=== PATIENT | female | born 1975 | race Caucasian/White ===

== ENCOUNTER 2022-01-03 10:50 | Outpatient (RCR) | payer OTHER, SELFPAY | END 2022-07-02 23:59 | disposition home or self-care (01) | LOC: CCIC 10:50 | PROVIDERS: PCP Family Medicine; Visit Provider Nurse Practitioner Family | DX: D05.12 Intraductal carcinoma in situ of left breast (principal); Z17.0 Estrogen receptor positive status [ER+]; Z79.810 Long term (current) use of selective estrogen receptor modulators (SERMs) | CPT/HCPCS: 99212; 99214 ==

== ENCOUNTER 2022-01-30 13:53 | Outpatient (RCR) | payer OTHER, SELFPAY ==
--- NOTE | 2022-03-22 16:30 | ONC.NURNOTE ---
Pt called saying she is down to 3 pills left of Tamoxifen with no refills. #90 with 1 refill called in per Milli Lewis APRN. Lm updating pt.
== END 2022-12-05 23:59 | disposition home or self-care (01) ==
PROVIDERS: PCP Family Medicine; Visit Provider Surgery
DX: I89.0 Lymphedema, not elsewhere classified (principal); Z51.89 Encounter for other specified aftercare
CPT/HCPCS: 97530

== ENCOUNTER 2022-08-01 08:21 | Outpatient (RCR) | payer OTHER, SELFPAY | END 2023-01-28 23:59 | disposition home or self-care (01) | LOC: CCIC 08:21 | PROVIDERS: PCP Family Medicine; Visit Provider Physician Assistant | DX: D05.12 Intraductal carcinoma in situ of left breast (principal); Z17.0 Estrogen receptor positive status [ER+]; Z79.810 Long term (current) use of selective estrogen receptor modulators (SERMs); N94.3 Premenstrual tension syndrome | CPT/HCPCS: 99212; 99214 ==

== ENCOUNTER 2023-04-21 08:29 | Outpatient (RCR) | payer OTHER, SELFPAY | END 2023-10-18 23:59 | disposition home or self-care (01) | LOC: CCIC 08:29 | PROVIDERS: PCP Family Medicine; Visit Provider Physician Assistant | DX: D05.12 Intraductal carcinoma in situ of left breast (principal); Z17.0 Estrogen receptor positive status [ER+]; Z90.13 Acquired absence of bilateral breasts and nipples; Z79.810 Long term (current) use of selective estrogen receptor modulators (SERMs); N60.99 Unspecified benign mammary dysplasia of unspecified breast; N60.89 Other benign mammary dysplasias of unspecified breast; N94.3 Premenstrual tension syndrome; N92.0 Excessive and frequent menstruation with regular cycle | CPT/HCPCS: 99212; 99214 ==

== ENCOUNTER 2023-11-04 09:12 | Outpatient (CLI) | payer OTHER, SELFPAY ==
--- OUTSIDE RECORDS SUMMARY | 2023-11-04 09:14 | XMS_ITS | Clinical Summary ---
Author Organization [facility] Address [address] [place] [id number] Care Team Providers Care Cad Manager Name Role Phone Larissa Valentine MD Primary Care Provider + Allergies No known active allergies Medications Medication Sig Dispensed Refills Start Date End Date Status tamoxifen (NOLVADEX) 20 MG tablet Take 20 mg by mouth daily Active ibuprofen (ADVIL/MOTRIN) 200 MG tablet Take 200 mg by mouth every 4 hours as needed for mild pain Active diphenhydrAMINE (BENADRYL) 25 MG tablet Take 25 mg by mouth every 6 hours as needed for itching or allergies Active oxyCODONE (ROXICODONE) 5 MG tabletIndications:Stat us post breast reconstruction Take 1-2 tablets (5-10 mg) by mouth every 4 hours as needed for moderate to severe pain 20 tablet 02/07/2022 Active senna-docusate (SENOKOT-S/PERICOLACE) 8.6-50 MG tabletIndications:Stat us post breast reconstruction Take 1-2 tablets by mouth 2 times daily 20 tablet 02/07/2022 Active Social History Tobacco Use Types Packs/Day Years Used Date Smoking Tobacco: Never Smokeless Tobacco: Never Alcohol Use Standard Drinks/Week Comments Yes 0 (1 standard drink = 0.6 oz pur e alcohol) social Adolescent Education Answer Date Record ed Getting School Help Needed Not on file 02/15 Sex and Gender Information Value Date Recorded Sex Assigned at Not on file Gender Identity Not on file Sexual Orientation Not on file Last Filed Vital Signs Vital Sign Reading Time Taken Comments Blood Pressure 107/74 02/07/2022 3:11 PM CDT Pulse 69 02/07/2022 3:11 PM CDT Temperature 36.4 ??C (97.6 ??F) 02/07/2022 2:15 PM CD T Respiratory Rate 12 02/07/2022 3:11 PM CDT Oxygen Saturation 98% 02/07/2022 3:11 PM CDT Inhaled Oxygen Concentration - - Weight 90.3 kg (199 lb) 02/07/2022 10:08 AM CDT Height 172.7 cm (5' 8) 02/07/2022 10:08 AM CDT Body Mass Index 30.26 02/07/2022 10:08 AM CDT Plan of Treatment Health Maintenance Due Date Last Done Comments ADVANCE CARE PLANNING 1977 ANNUAL REVIEW OF HM ORDERS 1977 CT COLONOGRAPHY 1977 FIT 1977 FLEX SIG 1977 YEARLY PREVENTIVE VISIT 1977 sDNA (Cologuard) 1977 Pneumococcal Vaccine: Pediatrics (0 to 5 Years) and At-Risk Patients (6 to 64 Years) (1 of 2 - PCV) 09/13/1983 COLONOSCOPY 09/13/1987 COLORECTAL CANCER SCREENING 09/13/1987 HIV SCREENING 1992 HEPATITIS C SCREENING 09/13/1995 HEPATITIS B IMMUNIZATION (1 of 3 - 19+ 3-dose series) 1996 PAP 1998 GLUCOSE 07/10/2008 07/10/2005 LIPID 2017 COVID-19 Vaccine ( season) 2023 04/17/2021, 09/15/2020, 08/25/2020 PHQ-2 (once per calendar year) 2023 DTAP/TDAP/TD IMMUNIZATION (2 - Td or Tdap) 06/10/2023 06/10/2013 INFLUENZA VACCINE (Season Ended) 2024 03/02/2021, 03/08/2020, 03/18/2018, Additional history exists HPV IMMUNIZATION Aged Out No longer e ligible based on patient's age to complete this topic IPV IMMUNIZATION Aged Out No longer e ligible based on patient's age to complete this topic MENINGITIS IMMUNIZATION Aged Out No l onger eligible based on patient's age to complete this topic RSV MONOCLONAL ANTIBODY Aged Out No l onger eligible based on patient's age to complete this topic Medical Devices Implanted Type Area Car Tester Device Identifier Shelf Expiration Date Model / Serial / Lot Samantha Inspira Cohesive Breast Implant Smooth Round Full Profile Implanted:Qty: 1 on 02/07/2022 by Geri Salas MD at [facility] Left: Breast ALLERGAN [id number] 06/27/2026 [place] [address] / [id number] / [id number] Samantha Inspira Cohesive Breast Implant Smooth Round Full Profile Implanted:Qty: 1 on 02/07/2022 by Geri Salas MD at [facility] Right: Breast ALLERGAN [id number] 07/24/2025 [place] [address] / [id number] / Explanted Type Area Car Tester Device Identifier Shelf Expiration Date Model / Serial / Lot Tissue Psychotherapist Social Worker Explanted:Qty: 1 on 02/07/2022 by Geri Salas MD at [facility] Left: Breast Tissue Psychotherapist Social Worker Explanted:Qty: 1 on 02/07/2022 by Geri Salas MD at [facility] Right: Breast Procedures Procedure Name Priority Date/Time Associated Diagnosis Comments COMPREHENSIVE METABOLIC PANEL STAT 07/10/2005 3:45 AM [facility] [employer]AT[employer] EQUIPMENT from Last 3 Months or Most Recently Relevant to Health Maintenance Results * (ABNORMAL) Comprehensive metabolic panel (07/10/2005 3:45 AM CLE[facility]ER [employer]ORAT[employer] EQUIPMENT) Sodium 136 133 - 144 mmol/L MISYS Potassium 3.4 3.4 - 5.3 mmol/L MISYS Chloride 105 94 - 109 mmol/L MISYS Carbon Dioxide 22 20 - 32 mmol/L MISYS Glucose 117(H) 60 - 110 mg/dL MISYS Urea Nitrogen 10 5 - 24 mg/dL MISYS Creatinine 0.59(L) 0.60 - 1.30 mg/dL MISYS GFR Estimate >90 >60 mL/min/1.7 m2 MISYS GFR Estimate If Black >90 >60 mL/min/1.7 m2 MISYS Calcium 8.2(L) 8.5 - 10.4 mg/dL MISYS AST 21 0 - 45 U/L MISYS Protein Total 6.8 6.0 - 8.2 g/dL MISYS Anion Gap 9 6 - 17 mmol/L MISYS Albumin 3.6 3.3 - 4.6 g/dL MISYS ALT 16 0 - 50 U/L MISYS Alkaline Phosphatase 59 40 - 150 U/L MISYS Bilirubin Total 0.5 0.2 - 1.3 mg/dL MISYS 07/10/2005 3:45 AM [facility] EQUIPMENT 07/10/2005 3:23 AM CLE[facility]ER [facility]AT[facility] EQUIPMENT María Julien MD LAB - BLOOD ORDERABL ES MISYS from Last 3 Months or Most Recently Relevant to Health Maintenance Care Teams Cad Manager Relationship Specialty Start Date End Date Larissa Valentine MD [facility] [address] [place] [address] PCP - General Family Medicine 03/28/21
--- OUTSIDE RECORDS SUMMARY | 2023-11-04 09:14 | XMS_ITS | Referral Summary ---
Author Organization [facility] Address [address] [place] [id number] Care Team Providers Care Wildlife Biostation Research Ecologist Name Role Phone Larissa Valentine MD Primary [...] 02/07/2022 10:08 AM CDT Plan of Treatment Not on file Medical Devices Implanted Type Area Safety Engineer Device Identifier Shelf Expiration Date Model / Serial / Lot Natrelle Inspira Cohesive Breast Implant Smooth Round Full Profile Implanted:Qty: 1 on 02/07/2022 by Geri Salas MD at [facility] Left: Breast ALLERGAN [id number] 06/27/2026 [facility] [place] [place]-[facility] / [id number] / [id number] Natrelle Inspira Cohesive Breast Implant Smooth Round Full Profile Implanted:Qty: 1 on 02/07/2022 by Geri Salas MD at [facility] Right: Breast ALLERGAN [id number] 07/24/2025 [facility] / [id number] / Explanted Type Area Safety Engineer Device Identifier Shelf Expiration Date Model / Serial / Lot Tissue Pallet Repairer Explanted:Qty: 1 on 02/07/2022 by Geri Salas MD at [facility] Left: Breast Tissue Pallet Repairer Explanted:Qty: 1 on 02/07/2022 by Geri Salas MD at [facility] Right: Breast Procedures Procedure Name Priority Date/Time Associated Diagnosis Comments COMPREHENSIVE METABOLIC PANEL STAT 07/10/2005 3:45 AM FRONT DESK ASSOCIATE from Last 3 Months or Most Recently Relevant to Health Maintenance Results * (ABNORMAL) Comprehensive metabolic panel (07/10/2005 3:45 AM FRONT DESK ASSOCIATE) Sodium 136 133 - 144 mmol/L MISYS [...] - 1.3 mg/dL MISYS 07/10/2005 3:45 AM FRONT DESK ASSOCIATE 07/10/2005 3:23 AM FRONT DESK ASSOCIATE María Julien MD LAB - BLOOD ORDERABL ES MISYS from Last 3 Months or Most Recently Relevant to Health Maintenance Care Teams Wildlife Biostation Research Ecologist Relationship Specialty Start Date End Date Larissa Valentine MD [facility] [address] [place] [address] PCP - General Family Medicine 03/28/21
--- OUTSIDE RECORDS SUMMARY | 2023-11-04 09:14 | XMS_ITS | Clinical Summary ---
Author Organization [employer] [facility] Address [place], [place] [address] Care Team Providers Care Steward/Stewardess Lounge Name Role Phone [place] Primary Care Provider Unavail able Allergies No known active allergies Medications Medication Sig Dispensed Refills Start Date End Date Status ORAL 1 per day 0 Active Social History Tobacco Use Types Packs/Day Years Used Date Smoking Tobacco: Never Assessed Estimated Date of Delivery Comme nts Yes 12/17/2005 Sex and Gender Information Value Date Recorded Sex Assigned at Not on file Gender Identity Not on file Sexual Orientation Not on file Obstetrics History Para Term AB IAB SAB Ectopic Multiple Livin g Live Births 1 Date Outcome GA Total Labor Labor/2nd/3rd Weight Sex Type Anes PTL Moriah A1 A5 Name Clin Last Filed Vital Signs Vital Sign Reading Time Taken Comments Blood Pressure 118/80 12/21/2005 8:00 AM CDT Pulse 64 12/21/2005 8:00 AM CDT Temperature 37 ??C (98.6 ??F) 12/21/2005 8:00 AM CDT Respiratory Rate 20 12/21/2005 8:00 AM CDT Oxygen Saturation - - Inhaled Oxygen Concentration - - Weight 86.9 kg (191 lb 9.3 oz) 12/20/2005 8:30 A M CDT Height 172.7 cm (5' 8) 12/18/2005 8:55 PM CDT Body Mass Index 29.13 12/18/2005 8:55 PM CDT Plan of Treatment Health Maintenance Due Date Last Done Comments Tdap 1988 Depression screening for age 12+ 1989 HIV for age 15-65 1992 BMI (ht and wt on same day) for age 18+ 09/13/1995 Hepatitis C screening for age 18-79 09/13/1995 Tetanus booster 1997 Colonoscopy through age 75 2022 Lipids for age 45-75 2022 Mammogram for age 45-75 2022 COVID-19 vaccine series ( season) 2023 09/15/2020, 08/25/2020 Influenza for age 9-49 01/18/2024 Pap test for age 21-65 04/23/2024 , 04/23/2021, 07/10/2015, Additional history exists Pneumococcal series for age 6-64 Aged Out No longer eligible based on patient's age to complete this topic Procedures Procedure Name Priority Date/Time Associated Diagnosis Comments HPV THIN PREP Routine 04/23/2021 2:35 PM AIRCRAFT DESIGN ENGINEER from Last 3 Months or Most Recently Relevant to Health Maintenance Results * HPV HIGH RISK (04/23/2021 2:35 PM AIRCRAFT DESIGN ENGINEER) TYPE 16 Negative Negative 04/26/2021 1:00 PM AIRCRAFT DESIGN ENGINEER [facility] TYPE 18 Negative Negative 04/26/2021 1:00 PM AIRCRAFT DESIGN ENGINEER [facility] OTHER HIGH RISK TYPES Negative Negative 04/26/2021 1:00 PM AIRCRAFT DESIGN ENGINEER [facility] Other (Cervical/Vagina l) 04/23/2021 2:35 PM AIRCRAFT DESIGN ENGINEER 04/25/2021 10:02 AM AIRCRAFT DESIGN ENGINEER Narrative [facility] - 04/26/2021 1:00 PM AIRCRAFT DESIGN ENGINEER HPV types 16, 18, 31, 33, 35, 39, 45, 51, 52, 56, 58, 59, 66 and 68 DNA were undetectable or below the pre-set threshold. Methodology: Amiare Edwige 4800 HPV Test Natasha Frazier MD [facility] [address] [place] [address], [place] from Last 3 Months or Most Recently Relevant to Health Maintenance Advance Directives * Full Code (Latest Code Status on File) Date Activated Date Inactivated Comments 12/19/2005 9:24 AM 12/21/2005 5:15 PM * Full Code Date Activated Date Inactivated Comments 12/19/2005 6:28 AM 12/19/2005 9:24 AM * Full Code Date Activated Date Inactivated Comments 12/18/2005 9:42 PM 12/18/2005 9:42 PM * Full Code Date Activated Date Inactivated Comments 12/18/2005 9:38 PM 12/18/2005 9:42 PM Care Teams Steward/Stewardess Lounge Relationship Specialty Start Date End Date Georgie Kaye PCP - General 02/08/21
--- NOTE | 2023-11-04 10:41 | W.ANESCHARGE ---
Anesthesia Charges Start Date/Time Anesthesia Start Date: 11/04/23 Anesthesia Start Time: 10:02 Stop Date/Time Anesthesia Stop Date: 11/04/23 Anesthesia Stop Time: 10:40
--- NOTE | 2023-11-04 10:49 | W.ANESCHARGE ---
Anesthesia Charges Start Date/Time Anesthesia Start Date: 11/04/23 Anesthesia Start Time: 10:02 Stop Date/Time Anesthesia Stop Date: 11/04/23 Anesthesia Stop Time: 10:40
== END 2023-11-04 09:13 | disposition home or self-care (01) ==
LOC: OP CLINIC 09:12
PROVIDERS: PCP Family Medicine; Visit Provider Surgery
DX: Z12.11 Encounter for screening for malignant neoplasm of colon (principal); K63.5 Polyp of colon
CPT/HCPCS: 00811; 45385; 88305; J2704

== ENCOUNTER 2023-12-31 11:46 | Outpatient (CLI) | payer OTHER, SELFPAY | END 2023-12-31 11:47 | disposition home or self-care (01) | LOC: FRMREF 11:47 | PROVIDERS: PCP Family Medicine; Visit Provider Obstetrics & Gynecology | DX: Z13.220 Encounter for screening for lipoid disorders (principal) | CPT/HCPCS: 80061 ==

== ENCOUNTER 2024-07-15 14:22 | Outpatient (RCR) | payer OTHER, SELFPAY | END 2025-01-11 23:59 | disposition home or self-care (01) | LOC: CCIC 14:22 | PROVIDERS: PCP Family Medicine; Visit Provider Internal Medicine Hematology & Oncology | DX: D05.12 Intraductal carcinoma in situ of left breast (principal); Z17.0 Estrogen receptor positive status [ER+]; Z90.13 Acquired absence of bilateral breasts and nipples; Z79.810 Long term (current) use of selective estrogen receptor modulators (SERMs); N94.3 Premenstrual tension syndrome; N92.0 Excessive and frequent menstruation with regular cycle | CPT/HCPCS: 99213; 99214; G0463 ==

== ENCOUNTER 2024-11-30 08:17 | Outpatient (CLI) | payer OTHER, SELFPAY ==
--- NOTE | 2024-11-30 09:49 | P.ANES_ITS ---
Anesthesia Charges Start Date/Time Anesthesia Start Date: 11/30/24 Anesthesia Start Time: 09:16 Stop Date/Time Anesthesia Stop Date: 11/30/24 Anesthesia Stop Time: 09:47 Coding CPT Codes CPT Codes: [place] LWR INTST SCR COLSC - 48455 ([id number]) P2 - PATIENT W/MILD SYST DISEASE, QK - LITHOGRAPH PRESS FEEDER 2-4 CNCRNT ANES PROC, QX - PUBLICATIONS EDITOR SVC W/ MD MED DIRECTION
--- NOTE | 2024-11-30 09:49 | W.ANESCHARGE ---
Anesthesia Charges Start Date/Time Anesthesia Start Date: 11/30/24 Anesthesia Start Time: 09:16 Stop Date/Time Anesthesia Stop Date: 11/30/24 Anesthesia Stop Time: 09:47 Coding CPT Codes CPT Codes: [place] LWR INTST SCR COLSC - 98838 ([id number]) P2 - PATIENT W/MILD SYST DISEASE, QK - STORE PERSON 2-4 CNCRNT ANES PROC, QX - THERAPIST PHYSICAL SVC W/ MD MED DIRECTION
--- NOTE | 2024-11-30 10:22 | P.ANES_ITS ---
Anesthesia Charges Start Date/Time Anesthesia Start Date: 11/30/24 Anesthesia Start Time: 09:16 Stop Date/Time Anesthesia Stop Date: 11/30/24 Anesthesia Stop Time: 09:47 Coding CPT Codes CPT Codes: [place] LWR INTST SCR COLSC - 29079 ([id number]) P2 - PATIENT W/MILD SYST DISEASE, QK - PATTERNATOR 2-4 CNCRNT ANES PROC, QX - AGENCY SALES REPRESENTATIVE SVC W/ MD MED DIRECTION
--- NOTE | 2024-11-30 10:22 | W.ANESCHARGE ---
Anesthesia Charges Start Date/Time Anesthesia Start Date: 11/30/24 Anesthesia Start Time: 09:16 Stop Date/Time Anesthesia Stop Date: 11/30/24 Anesthesia Stop Time: 09:47 Coding CPT Codes CPT Codes: [place] LWR INTST SCR COLSC - 44199 ([id number]) P2 - PATIENT W/MILD SYST DISEASE, QK - JIG MAKER 2-4 CNCRNT ANES PROC, QX - MILL HOUSE SUPERVISOR SVC W/ MD MED DIRECTION
== END 2024-11-30 08:18 | disposition home or self-care (01) ==
LOC: OP CLINIC 08:18
PROVIDERS: PCP Family Medicine; Visit Provider Surgery
DX: Z12.11 Encounter for screening for malignant neoplasm of colon (principal); Z86.0100 Personal history of colon polyps, unspecified; D12.6 Benign neoplasm of colon, unspecified
CPT/HCPCS: 00812; 45378; J2704